=== PATIENT | female | born 1970 | race Caucasian/White ===

== ENCOUNTER → 2020-03-28 | Outpatient (CLI) | payer BC, OTHER | LOC: ECHO 10:50 | DX: R94.31 Abnormal electrocardiogram [ECG] [EKG] (principal) | CPT/HCPCS: ECHO; 93306 ==

== ENCOUNTER 2021-03-12 21:35 | Emergency (ER) | payer BC ==
[2021-03-13] MEDS ORDERED: CYCLOBENZAPRINE10 MG PO (01:59)
== END 2021-03-13 02:35 | disposition home or self-care (01) ==
LOC: ER1 21:35
DX: H92.03 Otalgia, bilateral (principal); M79.10 Myalgia, unspecified site; R05.9 Cough, unspecified; M54.50 Low back pain, unspecified; Z20.822 Contact with and (suspected) exposure to COVID-19; I10 Essential (primary) hypertension; E78.5 Hyperlipidemia, unspecified; Z85.3 Personal history of malignant neoplasm of breast
CPT/HCPCS: 81001; 84703; 87081; 87880; 99283; U0002

== ENCOUNTER → 2021-04-17 | Outpatient (CLI) | payer BC ==
[~2021-04-17] MED LIST: CYCLOBENZAPRINE10 MG PO
== END ==
LOC: EXRD 08:00
DX: I10 Essential (primary) hypertension (principal); N28.89 Other specified disorders of kidney and ureter
CPT/HCPCS: 93975

== ENCOUNTER → 2021-05-02 | Outpatient (CLI) | payer BC | LOC: SLEEP 21:30 | DX: I10 Essential (primary) hypertension (principal); R06.83 Snoring | CPT/HCPCS: 95810 ==

== ENCOUNTER → 2021-05-15 | Outpatient (CLI) | payer BC | LOC: CT 07:32 | DX: I70.1 Atherosclerosis of renal artery (principal); N28.89 Other specified disorders of kidney and ureter; I10 Essential (primary) hypertension; Z79.899 Other long term (current) drug therapy; N28.9 Disorder of kidney and ureter, unspecified | CPT/HCPCS: 36415; 74175; 82565; Q9967 ==